=== PATIENT | female | born 1975 | race Two or more races ===

== ENCOUNTER 2017-08-13 08:33 | Outpatient (CLI) | payer OTHER | END 2017-08-13 09:30 | disposition home or self-care (01) | LOC: MAMO-SONO 08:33 | DX: Z12.31 Encounter for screening mammogram for malignant neoplasm of breast (principal); N64.89 Other specified disorders of breast ==

== ENCOUNTER 2017-09-02 08:04 | Outpatient (CLI) | payer OTHER | END 2017-09-02 15:47 | disposition home or self-care (01) | LOC: SONOGRAMA 08:04 → MAMO-SONO 09:00 → SONOGRAMA 15:47 | DX: R10.13 Epigastric pain (principal) ==

== ENCOUNTER → 2017-10-23 | Emergency (ER) | payer OTHER ==
[~2017-10-23] VITALS: Ht 157.5 cm; Wt 77.6 kg
[~2017-10-23] MED LIST: DESOXYN5 MG
== END | disposition home or self-care (01) ==
LOC: ER 19:07
DX: S61.213A Laceration without foreign body of left middle finger without damage to nail, initial encounter (principal); W45.8XXA Other foreign body or object entering through skin, initial encounter; Y93.89 Activity, other specified; Y92.098 Other place in other non-institutional residence as the place of occurrence of the external cause; Y99.8 Other external cause status

== ENCOUNTER 2018-01-22 11:03 | Emergency (ER) | payer OTHER ==
[~2018-01-22] VITALS: Ht 165.1 cm; Wt 71.2 kg
== END 2018-01-22 16:11 | disposition home or self-care (01) ==
LOC: ER 11:03
DX: K29.70 Gastritis, unspecified, without bleeding (principal); I88.8 Other nonspecific lymphadenitis; R10.31 Right lower quadrant pain

== ENCOUNTER 2019-02-26 21:16 | Emergency (ER) | payer OTHER ==
[~2019-02-26] VITALS: Ht 152.4 cm; Wt 72.6 kg
== END 2019-02-26 23:18 | disposition home or self-care (01) ==
LOC: ER 21:16
DX: K29.70 Gastritis, unspecified, without bleeding (principal); R11.11 Vomiting without nausea

== ENCOUNTER → 2022-05-09 | Emergency (ER) | payer OTHER ==
[~2022-05-09] VITALS: Ht 157.5 cm; Wt 74.8 kg
[~2022-05-09] MED LIST changes: +LOPRESSOR25 MG PO
== END | disposition home or self-care (01) ==
LOC: ER 10:04
DX: R19.7 Diarrhea, unspecified (principal); Z20.822 Contact with and (suspected) exposure to COVID-19